=== PATIENT | male | born 1970 | race Caucasian/White ===

== ENCOUNTER 2019-07-26 14:28 | Emergency (ER) | payer BC, OTHER ==
[~2019-07-26] VITALS: Ht 182.9 cm; Wt 86.4 kg
[2019-07-26 15:30] VITALS: BP 137/98
== END 2019-07-26 15:32 ==
LOC: ER 14:29
DX: Z04.3 Encounter for examination and observation following other accident (principal); F10.99 Alcohol use, unspecified with unspecified alcohol-induced disorder; V43.92XA Unspecified car occupant injured in collision with other type car in traffic accident, initial encounter; Y93.89 Activity, other specified; Y92.488 Other paved roadways as the place of occurrence of the external cause; Y99.8 Other external cause status; Y90.9 Presence of alcohol in blood, level not specified
CPT/HCPCS: 99283

== ENCOUNTER 2022-08-17 13:12 | Day surgery (SDC) | payer BC ==
[2022-08-12 12:15] LABS: BASOPHILS % (AUTO) 0.3 % (0-1); EOSINOPHILS # (AUTO) 0.2 X10'3 (0-0.9); EOSINOPHILS % (AUTO) 2.5 % (0-6); HEMATOCRIT 43.7 % (42.0-52.0); HEMOGLOBIN 14.5 g/dl (14.0-17.9); LYMPHOCYTES # (AUTO) 1.4 X10'3 (1.1-4.8); LYMPHOCYTES % (AUTO) 18.4 % (21-51); MEAN CORPUSCULAR HEMOGLOBIN 30.8 PG (27.0-31.0); MEAN CORPUSCULAR HGB CONC 33.2 g/dL (33.0-36.5); MEAN CORPUSCULAR VOLUME 92.8 FL (78-98); MEAN PLATELET VOLUME 8.5 FL (7.4-10.4); MONOCYTES # (AUTO) 0.7 X10'3 (0-0.9); MONOCYTES % (AUTO) 8.7 % (2-12); NEUTROPHILS # (AUTO) 5.5 X10'3 (1.8-7.7); NEUTROPHILS % (AUTO) 70.1 % (42-75); PLATELET COUNT 262 X10'3 (140-440); RED BLOOD COUNT 4.71 X10'6 (4.70-6.10); RED CELL DISTRIBUTION WIDTH 13.4 % (11.5-14.5); WHITE BLOOD COUNT 7.8 X10'3 (4.5-11.0)
[2022-08-12 12:25] LABS: APTT 27 SECONDS (22-32)
[2022-08-12 12:34] LABS: ALBUMIN 3.8 G/DL (3.4-5.0); BLOOD UREA NITROGEN 24 MG/DL (7-18); BUN/CREATININE RATIO 23.5 (5.4-32.0); CALCIUM 9.6 MG/DL (8.5-10.1); CREATININE 1.02 MG/DL (0.60-1.10); GLUCOSE 98 MG/DL (70-104); TOTAL CARBON DIOXIDE 28.2 MMOL/L (24-32); eGFR 76 ML/MIN
[2022-08-12 12:51] LABS: ANION GAP 8 (8-16); CHLORIDE 107 MMOL/L (99-107); POTASSIUM 4.7 MMOL/L (3.5-5.1); SODIUM 143 MMOL/L (135-145)
[~2022-08-17] VITALS: Ht 182.9 cm; Wt 92.6 kg
[2022-08-17] MEDS ORDERED: APIX5TAB3 PO (13:28)
[2022-08-17] MEDS ORDERED: SOTA80TA73 PO (13:28)
[2022-08-17] MEDS ORDERED: PREG150C46 PO (13:28)
[2022-08-17 13:31] VITALS: BP 116/88
[2022-08-17] MEDS ORDERED: fentaNYL/PF 50MCG/1 ML 2ML syringe IV ONE (13:35)
[2022-08-17] MEDS ORDERED: MIDAZolam 1mg/ml 10ml vial IV ONE (13:35)
[2022-08-17] MEDS ORDERED: normal saline 1000ml 1,000 ML IV SCH (13:35)
--- NOTE | 2022-08-17 16:33 | NUR ---
Procedure not performed, pt states he has not been on eliquis 3 consecutive weeks, has only been [address] Jian Rasheed
== END 2022-08-17 16:00 | disposition home or self-care (01) ==
LOC: SSTAY O 13:12
PROVIDERS: ATTEND Internal Medicine Interventional Cardiology
DX: I48.91 Unspecified atrial fibrillation (principal); Z53.8 Procedure and treatment not carried out for other reasons; I10 Essential (primary) hypertension; Z79.01 Long term (current) use of anticoagulants; Z79.899 Other long term (current) drug therapy
CPT/HCPCS: 36415; 80048; 85025; 85610; 85730; J7030; A4620

== ENCOUNTER 2024-03-08 09:51 | Outpatient (CLI) | payer BC ==
[~2024-03-08 09:51] MED LIST: APIX5TAB3 PO; PREG150C47 PO; SOTA80TA73 PO
== END 2024-03-08 23:59 | disposition home or self-care (01) ==
LOC: RAD 09:51
PROVIDERS: ATTEND Physician Assistant
DX: M47.26 Other spondylosis with radiculopathy, lumbar region (principal); M43.26 Fusion of spine, lumbar region; M53.3 Sacrococcygeal disorders, not elsewhere classified; M54.6 Pain in thoracic spine; G89.4 Chronic pain syndrome; M96.1 Postlaminectomy syndrome, not elsewhere classified; M48.07 Spinal stenosis, lumbosacral region; Z68.1 Body mass index [BMI] 19.9 or less, adult; Z96.89 Presence of other specified functional implants
CPT/HCPCS: 72131